=== PATIENT | male | born 2005 | race Caucasian/White ===

== ENCOUNTER → 2024-11-03 11:19 | Outpatient (REF) | payer BC, SELFPAY | LOC: RCS 11:19 | PROVIDERS: ATTENDING PHYSICIAN Internal Medicine Cardiovascular Disease; FAMILY PHYSICIAN Internal Medicine | DX: I45.81 Long QT syndrome (principal) | CPT/HCPCS: 93306 ==

== ENCOUNTER → 2024-11-04 07:40 | Outpatient (REF) | payer BC, SELFPAY | LOC: RCS 07:40 | PROVIDERS: ATTENDING PHYSICIAN Internal Medicine Cardiovascular Disease; FAMILY PHYSICIAN Internal Medicine | DX: I45.81 Long QT syndrome (principal) | CPT/HCPCS: 93017 ==